=== PATIENT | male | born 1940 | race Caucasian/White ===

== ENCOUNTER → 2020-04-11 | Outpatient (CLI) | payer MEDICARE ==
--- NOTE | 2020-04-11 10:42 | RAD ---
EXAM: Chest, 2 views. HISTORY: Hypertension. Hyperlipidemia. COMPARISON: None. FINDINGS: 2 views of the chest are obtained. There is no infiltrate, pleural effusion or pneumothorax . The heart is normal in size. There is hyperinflation due to inspiratory effort or emphysema. There is slight blunting of the costophrenic angles in the lateral projection due to relative increased fiona g volumes. There are healed rib fractures. IMPRESSION: No acute pulmonary finding. Electronically signed by: Eufemia English MD (04/11/2020 10:40 AM) [id number]
== END ==
LOC: DXRAD 09:07
PROVIDERS: ATTEND Internal Medicine Nephrology
DX: I10 Essential (primary) hypertension (principal); E78.5 Hyperlipidemia, unspecified
CPT/HCPCS: 71046